=== PATIENT | male | born 1960 | race Caucasian/White ===

== ENCOUNTER 2023-06-12 12:07 | Emergency (ER) | payer OTHER ==
[~2023-06-12] VITALS: Ht 170.2 cm; Wt 80.0 kg
[2023-06-12 12:11] VITALS: O2SAT 98
[2023-06-12 15:16] LABS: BASOPHILS % 0.4 % (0.0-2.0); DIFFERENTIAL COMMENT 0; EOSINOPHILS % 1.2 % (0.0-5.0); HEMATOCRIT. 40.4 % (42.0-52.0); HEMOGLOBIN. 13.9 g/dL (14.0-18.0); LYMPHOCYTES % 36.4 % (20.0-50.0); MEAN CORPUSCULAR HEMOGLOBIN 34.8 pg (28.0-32.0); MEAN CORPUSCULAR HGB CONC 34.4 g/dL (31.0-37.0); MEAN CORPUSCULAR VOLUME 101.1 fL (80.0-94.0); MEAN PLATELET VOLUME 9.7 fl (7.4-10.4); MONOCYTES % 2.8 % (2.0-8.0); NEUTROPHILS % 59.2 % (40.0-76.0); PLATELET 213 x1000/uL (130-400); RED CELL DISTRIBUTION WIDTH 14.9 % (11.6-14.6); WHITE BLOOD COUNT 9.1 x1000/uL (4.5-11.0)
[2023-06-12 15:29] LABS: CHLORIDE 109 mEq/L (98-107); INDEX HEMOLYSI 1 (1-3); INDEX ICTERIC 1 (1-4); INDEX LIPEMIC 1 (1-3); POTASSIUM 3.7 mEq/L (3.5-5.1); SODIUM 137 mEq/L (136-145)
[2023-06-12 15:40] LABS: ALANINE AMINOTRANSFERASE 24 IU/L (13-61); ALBUMIN 3.4 g/dL (3.4-5.0); ASPARTATE AMINOTRANSFERASE 17 IU/L (15-37); BILIRUBIN TOTAL 0.2 mg/dL (0.1-1.0); CALCIUM 7.7 mg/dL (8.5-10.1); CARBON DIOXIDE 22 mEq/L (21-32); CREATININE 0.9 mg/dL (0.6-1.3); GLUCOSE 134 mg/dL (70-105); PROTEIN TOTAL 6.9 g/dL (6.0-8.3); UREA NITROGEN BLOOD 8 mg/dL (7-21)
[2023-06-12 16:17] LABS: ETHANOL BLOOD 401 mg/dL (<10)
[2023-06-12 19:32] VITALS: BP 121/76; PULSE 83; RESP 16; TEMP 98.5
== END 2023-06-12 19:35 | disposition home or self-care (01) ==
LOC: EDBD 12:07 → ER 12:07
DX: F10.20 Alcohol dependence, uncomplicated (principal); R41.82 Altered mental status, unspecified; Y90.8 Blood alcohol level of 240 mg/100 ml or more
CPT/HCPCS: 36415; 80053; 80320; 85025; 93005; 99284; G0480